=== PATIENT | female | born 1995 | race African-American/Black ===

== ENCOUNTER 2020-04-08 22:39 | Emergency (ER) | payer OTHER, SELFPAY ==
--- NOTE | ~2020-04-08 | XR_ITS ---
EXAMINATION: XR chest 1V portable EXAM DATE: 04/08/2020 23:00 INDICATION: Midsternal chest pain, symptoms for days. TECHNIQUE: Portable AP frontal chest x-ray was obtained. There is no prior study for comparison. FINDINGS: The lungs are clear. There are no pleural effusions. The cardiomediastinal silhouette is within normal limits. There is no pneumothorax suspected. Thoracic Zayas rods. IMPRESSION: No acute cardiopulmonary findings. Reviewed, dictated and finalized at location A. P MAINT ENG
--- NOTE | ~2020-04-08 | CT_ITS ---
EXAMINATION: CTA chest PE protocol DATE: 04/09/2020 00:39 INDICATION: Midsternal chest pain TECHNIQUE: Computed tomography angiography (CTA) of the chest was performed with 100 mL Omnipaque-350 intravenous contrast timed to evaluate the pulmonary arteries. Coronal maximum intensity projection 3D-reconstructions were created by the technologist. The dose-length product (DLP) was 158.10 mGy-cm. Automated exposure control and iterative reconstruction technique were employed. COMPARISON: None. FINDINGS: The pulmonary arteries are well-opacified. Streak artifact from thoracic fusion hardware sl ightly limits the examination however no pulmonary embolism is identified. Lungs are free of acute op acities. There is no pleural effusion or pneumothorax. There are scattered small nodules of the lungs , the largest of which measures 4 mm in the left lower lobe. No pathologically enlarged thoracic lymp h nodes are identified. The heart size is normal. There are surgical changes of posterior fusion from T4 through L1. There is mild anterior skin thickening overlying the shoulders of unclear significanc e. IMPRESSION: 1. No pulmonary embolism or acute cardiopulmonary abnormality. Reviewed, dictated and finalized at location A. N OILSEED OR PASTURE GROWER
[2020-04-08 22:47] VITALS: BP 137/89; PULSE 120; RESP 19; TEMP 37.3; O2SAT 100
--- NOTE | 2020-04-08 22:48 | ECG_ITS ---
Measurements Intervals [place] Rate: 114 P: 99 [place]: 133 QRS: 87 QRSD: 80 T: 161 QT: 309 QTc: 426 Interpretive Statements SINUS TACHYCARDIA POSSIBLE LEFT ATRIAL ENLARGEMENT INCOMPLETE RIGHT BUNDLE BRANCH BLOCK BORDERLINE ST-T WAVE ABNORMALITY- INFERIOR LEADS ABNORMAL ECG Electronically Signed On 04-09-2020 7:14:32 TOOLING ENGINEERING TECH by Saleem Blas D.O.
[2020-04-08] MEDS: KETOROLAC 30 MG/ML VIAL (*BKC) IV PUSH (23:09)
[2020-04-08] MEDS: MORPHINE SULFATE (*CRX) 4 MG/ML INJ IV PUSH (23:09)
[2020-04-08 23:37] LABS: Basophils Percent Auto 0.3 % (0.2-1.2); Eosinophils Percent Auto 0.2 % (0-4.4); Hematocrit 34.4 % (37.0-47.0); Immature Granulocyte Absolute 0.01 K/mm3 (0.00-0.031); Immature Granulocyte Percent A 0.2 % (0-0.5); Lymphocytes Absolute Auto 1.19 K/mm3 (0.9-3.2); Lymphocytes Percent Auto 19.1 % (18.3-44.2); Mean Corpuscular Hemoglobin 25.4 pg (26-34); Mean Corpuscular Volume 79.4 fl (80-100); Mean Platelet Volume 11.3 fl (7.4-10.4); Monocytes Absolute Auto 0.8 K/mm3 (0.1-0.6); Monocytes Percent Auto 12.5 % (2.6-8.5); Neutrophils Absolute Auto 4.2 K/mm3 (1.3-6.7); Neutrophils Percent Auto 67.7 % (45.5-73.1); Platelet Count Result 206 k/mm3 (150-375); Red Blood Count 4.33 M/mm3 (4.2-5.4); Red Cell Distribution Width 12.7 % (11.5-14.5); White Blood Count 6.2 K/mm3 (4.5-10.0)
[2020-04-08 23:50] LABS: Alanine Aminotransferase 31 U/L (4-35); Albumin Level 4.4 g/dL (3.5-5.1); Alkaline Phosphatase 83 U/L (38-126); Anion Gap 9 mmol/L (8-16); Aspartate Amino Transferase 30 U/L (14-36); Bilirubin,Total 0.4 mg/dL (0.2-1.3); Blood Urea Nitrogen 11 mg/dL (7-17); Calcium 9.3 mg/dL (8.4-10.2); Carbon Dioxide 23 mmol/L (22-30); Chloride 109 mmol/L (98-107); Estimated CRCL calculation 88 ml/min; Estimated Glomerular Filt Rate > 60; Glucose 107 mg/dL (65-105); Lipase 124 U/L (23-300); Potassium 3.4 mmol/L (3.4-5.0); Sodium 141 mmol/L (137-145)
[2020-04-08 23:52] LABS: Add Urine Microscopic? YES; Appearance Urine Clear (Clear); Bacteria Urine Trace /hpf; Bilirubin Urine Negative (Negative); Blood Urine 2+ (Negative); Color Urine Yellow (Yellow); Glucose Urine UA Negative (Negative); Ketones Urine 1+ mg/dL (Negative); Leukocyte Esterase Ur Negative LEU/UL (Negative); Mucus Urine Few /lpf; Nitrate Urine Negative (Negative); Protein Urine 2+ mg/dL (Negative); Specific Grav Ur 1.029 (1.001-1.035); Squamous Epithelial Cell Urine Few /hpf (Few); WBC Urine 0-3 /hpf
[2020-04-08 23:56] LABS: Prothrombin Time 13.3 Seconds (11.1-14.7)
[2020-04-08 23:57] LABS: Partial Thromboplastin Time 35.3 SECONDS (22.3-36.8)
[2020-04-08 23:59] LABS: D Dimer 0.72 ug/mL (<0.48)
[2020-04-09 00:02] LABS: NT Pro B Type Natriuretic Pept 31 PG/ML (5-100); Troponin I < 0.012 ng/mL (0.000-0.034)
--- NOTE | 2020-04-09 00:37 | ED.GENADULT ---
HPI - General Adult General Chief complaint: Chest Pain Stated complaint: cp-epigastric Time Seen by Provider: 04/08/20 22:43 History of Present Illness HPI narrative: Patient 24-year-old female presents the emergency department with chief complaint of chest pain. The patient states that she has had a little bit of a cough but is had a sharp type pain in her sternal border for the last several days. The patient states is worse whenever she takes a deep breath also feels as though there is a tightness with it as well. The patient reports that she uses an inhaler on an as-needed basis but states that it has not been helping. Patient denies fever denies chills reports no recent Covid exposure. Related Data Allergies Allergy/AdvReac Type Severity Reaction Status Date / Time No Known Allergies Allergy Verified 04/08/20 22:54 Review of Systems Review of Systems: Narrative: A 10 system review of systems was completed on the patient and is negative except for what is stated in the HPI. Nursing and ancillary documentation was reviewed. PMFSH Comments Patient has history of asthma and history of spine surgery Social history the patient denies illicit drug use Exam Narrative: Exam Narrative: GENERAL: Well-appearing, well-nourished, and in no acute distress. HEAD: Normocephalic, atraumatic. EYES: PERRLA and EOMI. ENT: Nares clear, no rhinorrhea or epistaxis. Mucous membranes moist. NECK: Supple. CHEST: Clear to auscultation. No respiratory distress. There is tenderness to palpation along the sternal border HEART: Regular rate and rhythm. No murmur heard. Normal peripheral pulses. ABDOMEN: Soft, nontender, nondistended, normal active bowel sounds. EXTREMITIES: Normal range of motion. No edema. SKIN: Warm, dry, no rash. NEURO: No focal deficits. Alert and oriented x3. PSYCH: Normal mood and affect. Course Course Emergency Course: Patient had a mildly elevated D-dimer a CTA of the chest was obtained which showed no evidence of pulmonary embolism. EKG shows a sinus tachycardia no ST elevation no ST depression. Patient has a heart rate of 114 Vital Signs Vital signs: Vital Signs Temperature 37.3 C 04/08/20 22:47 Pulse Rate 120 H 04/08/20 22:47 Respiratory Rate 19 04/08/20 22:47 Blood Pressure 137/89 04/08/20 22:47 Pulse Oximetry 100 04/08/20 22:47 Temperature 37.3 C 04/08/20 22:47 Pulse Rate 92 04/09/20 00:57 Respiratory Rate 16 04/09/20 00:57 Blood Pressure 113/73 04/09/20 00:57 Pulse Oximetry 100 04/09/20 00:57 Medical Decision Making Vital Signs Vital Signs: Vital Signs Temperature 37.3 C 04/08/20 22:47 Pulse Rate 120 H 04/08/20 22:47 Respiratory Rate 19 04/08/20 22:47 Blood Pressure 137/89 04/08/20 22:47 Pulse Oximetry 100 04/08/20 22:47 Temperature 37.3 C 04/08/20 22:47 Pulse Rate 92 04/09/20 00:57 Respiratory Rate 16 04/09/20 00:57 Blood Pressure 113/73 04/09/20 00:57 Pulse Oximetry 100 04/09/20 00:57 Lab Data Result diagrams: 04/08/20 23:29 04/08/20 23:29 Labs: Lab Results 04/08/20 04/08/20 04/08/20 Range/Units 23:29 23:29 23:29 WBC 6.2 (4.5-10.0) K/mm3 RBC 4.33 (4.2-5.4) M/mm3 Hgb 11.0 L (12.0-15.0) g/dL Hct 34.4 L (37.0-47.0) % MCV 79.4 L (80-100) fl MCH 25.4 L (26-34) pg MCHC 32.0 (32-36) g/dl RDW 12.7 (11.5-14.5) % Plt Count 206 (150-375) k/mm3 MPV 11.3 H (7.4-10.4) fl Immature Gran % (Auto) 0.2 (0-0.5) % Neut % (Auto) 67.7 (45.5-73.1) % Lymph % (Auto) 19.1 (18.3-44.2) % Crosby % (Auto) 12.5 H (2.6-8.5) % Eos % (Auto) 0.2 (0-4.4) % Baso % (Auto) 0.3 (0.2-1.2) % Lymph # (Auto) 1.19 (0.9-3.2) K/mm3 Crosby # (Auto) 0.8 H (0.1-0.6) K/mm3 Eos # (Auto) 0.0 (0-0.3) K/mm3 Baso # (Auto) 0.0 (0.0-0.1) K/mm3 Abs Immat Gran (auto) 0.01 (0.00-0.031) K/mm3 Absolute Neuts (auto) 4.2 (1.3-6.7)
[2020-04-09 00:57] VITALS: BP 113/73; PULSE 92; RESP 16; O2SAT 100
[2020-04-09 01:41] VITALS: BP 124/78
== END 2020-04-09 01:42 | disposition home or self-care (01) ==
PROVIDERS: Emergency Provider Emergency Medicine
DX: M94.0 Chondrocostal junction syndrome [Tietze] (principal); J45.909 Unspecified asthma, uncomplicated; R00.0 Tachycardia, unspecified; I45.10 Unspecified right bundle-branch block; R94.31 Abnormal electrocardiogram [ECG] [EKG]
CPT/HCPCS: 36415; 71045; 71275; 80053; 81001; 81025; 83690; 83880; 84484; 85025; 85380; 85610; 85730; 93005; 96374; 96375; 99284; J1885; J2270; Q9967